=== PATIENT | male | born 1975 | race Asian ===

== ENCOUNTER 2019-07-23 18:04 | Emergency (ER) | payer OTHER ==
[~2019-07-23] VITALS: Ht 172.7 cm; Wt 89.8 kg
[2019-07-23 20:30] VITALS: BP 128/96
[2019-07-23] MEDS ORDERED: COLCHICINE 0.6 MG CAP PO ONE (21:00)
[2019-07-23] MEDS ORDERED: DexAMETHasone SOD PHOS 10MG/1ML VIAL INJ IM ONE (21:00)
[2019-07-23] MEDS ORDERED: HYDROcodone-ACET 10/325MG TAB PO ONE (21:00)
== END 2019-07-23 21:24 | disposition home or self-care (01) ==
LOC: ER 18:06
DX: M25.462 Effusion, left knee (principal)
CPT/HCPCS: 73560; 96372; 99283; J1100

== ENCOUNTER 2021-02-09 23:09 | Emergency (ER) | payer OTHER ==
[~2021-02-09] VITALS: Ht 177.8 cm; Wt 90.7 kg
[2021-02-09 23:09] VITALS: BP 98/68
[2021-02-10] MEDS ORDERED: methylPREDNISolone SOD SUCC 125 MG/2 ML VL IM ONE (02:15)
[2021-02-10] MEDS ORDERED: KETOROLAC TROMETH 60MG/2ML VIAL IM ONE (02:15)
== END 2021-02-10 03:16 | disposition home or self-care (01) ==
LOC: ER 23:09
DX: S83.8X1A Sprain of other specified parts of right knee, initial encounter (principal); X58.XXXA Exposure to other specified factors, initial encounter; Y93.89 Activity, other specified; Y92.89 Other specified places as the place of occurrence of the external cause; Y99.8 Other external cause status
CPT/HCPCS: 29505; 36415; 73562; 84550; 96372; 99284; J1885; J2930

== ENCOUNTER 2021-10-08 10:59 | Emergency (ER) | payer OTHER ==
[~2021-10-08] VITALS: Ht 177.8 cm; Wt 81.6 kg
[2021-10-08 12:35] VITALS: BP 102/66
[2021-10-08] MEDS ORDERED: methylPREDNISolone SOD SUCC 125 MG/2 ML VL IM ONE (13:30)
[2021-10-08] MEDS ORDERED: KETOROLAC TROMETH 60MG/2ML VIAL IM ONE (13:30)
[2021-10-08] MEDS ORDERED: IBUP800T27 PO (13:35)
[2021-10-08] MEDS ORDERED: PRED20TA2 PO (13:35)
== END 2021-10-08 13:53 | disposition home or self-care (01) ==
LOC: ER 10:59
DX: M10.9 Gout, unspecified (principal); Z79.899 Other long term (current) drug therapy
CPT/HCPCS: 36415; 84550; 96372; 99284; J1885; J2930

== ENCOUNTER 2024-11-11 20:55 | Emergency (ER) | payer OTHER ==
[~2024-11-11] VITALS: Ht 177.8 cm; Wt 93.7 kg
[~2024-11-11 20:55] MED LIST: IBUP-1456 PO; PRED20TA2 PO
[2024-11-11 23:50] VITALS: PULSE 68; RESP 16; TEMP 98.9; O2SAT 96
[2024-11-12 00:09] LABS: Basophils # (auto) 0.1 10 ^3/uL (0-0.2); Basophils % (auto) 0.5 % (0.0-2.0); Eosinophils # (auto) 0.2 10 ^3/uL (0-0.8); Eosinophils % (auto) 1.9 % (0.0-7.0); Hematocrit 45.6 % (41.0-53.0); Hemoglobin 15.9 g/dL (13.5-17.5); Lymphocytes # (auto) 1.5 10 ^3/uL (0.4-5.4); Lymphocytes % (auto) 13.9 % (10.0-50.0); Mean Corpuscular Hemoglobin 30.2 pg (28.0-32.0); Mean Corpuscular Hgb Conc. 34.9 g/dL (32.0-36.0); Mean Corpuscular Volume 86.3 fL (80.0-100.0); Monocytes # (auto) 1.1 10 ^3/uL (0-1.3); Monocytes % (auto) 10.2 % (0.0-12.0); Neutrophils # (auto) 7.8 10 ^3/uL (1.6-8.6); Neutrophils % (auto) 73.5 % (37.0-80.0); Platelet Count (auto) 169 10^3/uL (140-450); Red Blood Cells 5.28 10^6/uL (4.5-5.90); Red Cell Distribution Width 13.7 % (11.8-14.3); White Blood Cell 10.6 10^3/uL (4.4-10.8)
[2024-11-12] MEDS: HYDROmorphone HCL 2 MG/ML VL/or syr IM ONE (00:20)
[2024-11-12] MEDS: DexAMETHasone SOD PHOS 10MG/1ML VIAL INJ IM ONE (00:20)
[2024-11-12 00:50] VITALS: BP 139/76; PULSE 65; RESP 18
[2024-11-12] MEDS ORDERED: HYDR-4902 PO (01:06)
[2024-11-12] MEDS ORDERED: IBUP-1455 PO (01:06)
--- NOTE | 2024-11-12 01:06 | ED.PDOC ---
Musculoskeletal HPI Comments Patient is a Croatian speaking only 49-year-old male who arrives to the ED today with his friend for evaluation of right knee concerns. Friend states the patient has a history of gout and states that his right knee has been inflamed and gouty for the past two days, worsening today. Patient denies any fever nausea or vomiting. Vital signs were stable on arrival. Chief Complaint: Lower Extremity Time Seen by MD: 21:12 Primary Care Provider: Reviewed Notes: Nurses Notes Allergies: Coded Allergies: NO KNOWN ALLERGIES (Unverified , 07/23/19) Home Meds Active Scripts Prednisone (Prednisone) 20 Mg Tab, 20 MG PO BID for 5 Days, #10 MG 0 Refills Prov:VIJAY GARCIA 10/08/21 Ibuprofen (Ibuprofen) 800 Mg Tab, 1 TAB PO TID PRN, #30 TAB 0 Refills Prov:VIJAY GARCIA 10/08/21 Information Source: Patient, Friend Mode of Arrival: Ambulatory Location: Right Extremity Location: Knee Timing: Days Prehospital treatment: None Severity: Moderate Able to Move Extremity: Yes Bear Weight: Limited Pain: Moderate Hand Dominance: Right Mechanism: Spontaneous Circumstances: Spontaneous Onset of Symptoms: Spontaneous Symptoms: Swelling, Pain DVT Risk Factors: NONE Past Medical History PAST MEDICAL HISTORY: Gout Surgical History: Denies all surgeries Family History Family History: Unknown Social History Smoker: Non-Smoker Alcohol: Denies ETOH Use Drugs: Denies Drug Use Lives In: Home Constitutional: denies: chills, diaphoresis, fatigue, fever, malaise, sweats, weakness, others EENTM: denies: blurred vision, double vision, ear bleeding, ear discharge, ear drainage, ear pain, ear ringing, eye pain, eye redness, hearing loss, mouth pain, mouth swelling, nasal discharge, nose bleeding, nose congestion, nose pain, photophobia, tearing, throat pain, throat swelling, voice changes, others Respiratory: denies: cough, hemoptysis, orthopnea, SOB at rest, shortness of breath, SOB with excertion, stridor, wheezing, others Cardiovascular: denies: chest pain, dizzy spells, diaphoresis, Dyspnea on exertion, edema, irregular heart beat, left arm pain, lightheadedness, palpitations, PND, syncope, others Gastrointestinal: denies: abdomen distended, abdominal pain, blood streaked bowels, constipated, diarrhea, dysphagia, difficulty swallowing, hematemesis, melena, nausea, poor appetite, poor fluid intake, rectal bleeding, rectal pain, vomiting, others Genitourinary: denies: burning, dysuria, flank pain, frequency, hematuria, incontinence, penile discharge, penile sore, pain, testicle pain, testicle swelling, urgency, others Neurological: denies: dizziness, fainting, headache, left sided numbness, left sided weakness, numbness, paresthesia, pre-existing deficit, right sided numbn ess, right sided weakness, seizure, speech problems, tingling, tremors, weakness, others Musculoskeletal: reports: others (Right knee pain and swelling); denies: back pain, gout, joint pain, joint swelling, muscle pain, muscle stiffness, neck pain Integumetry: denies: bruises, change in color, change in hair/nails, dryness, laceration, lesions, lumps, rash, wounds, others Allergic/Immunocompromised: denies: Difficulty Healing, Frequent Infections, Hives, Itching, others Hematologic/Lymphatic: denies: anemia, blood clots, easy bleeding, easy bruising, swollen glands, others Endocrine: denies: excessive hunger, excessive sweating, excessive thirst, excessive urination, flushing, intolerance to cold, intolerance to heat, unexplained weight gain, unexplained weight loss, others Psychiatric: denies: anxiety, bipolar disorder, depression, hopeless, panic disorder, schizophrenia, sleepless, suicidal, others Physical Exam General Appearance: Moderate Distress (Due to right knee pain concerns.), Normal HEENT: Normal ENT Inspection, Pharynx Normal, TMs Normal Neck: Full Range of Motion, Non-Tender, Normal, Normal Inspection Respiratory: Chest Non-Tender, Lungs Clear, No Accessory Muscle Use, No Respiratory Distress, Normal Breath Sounds Cardiovascular: No Edema, No JVD, No Murmur, No Gallop, Normal Peripheral Pulses, Regular Rate/Rhythm Breast Exam: Deferred Gastrointestinal: No Organomegaly, Non Tender, No Pulsatile Mass, Normal Bowel Sounds, Soft Genitalia: Deferred Pelvic: Deferred Rectal: Deferred Extremities: Other (Right knee reveals some moderate edema without erythema noted. I am not sure this patient is having a gout flare. Knee looks to be more effusive than gout like. Significant reduced range of motion. Distal neurovascularly intact.) Neurologic: Alert, No Motor Deficits, Normal Affect, Normal Mood, No Sensory Deficits Cerebellar Function: Normal Reflexes: Normal Skin: Dry, Normal Color, Warm Lymphatic: No Adenopathy Was a procedure done? Was a procedure done?: No Differential Diagnosis EXT Differential Diagnosis: Other (Gout, knee effusion) X-Ray, Labs, Meds, VS Vital Signs Date Time Temp Pulse Resp B/P (MAP) Pulse Ox O2 Delivery O2 Flow Rate FiO2 11/12/24 00:20 68 16 141/78 11/11/24 23:50 68 16 96 Room Air* 0 21 11/11/24 23:50 98.9 68 16 141/78 (99) 98 98.9 11/11/24 23:00 99.7 92 13 120/80 (93) 96 99.7 Lab Test 11/11/24 23:59 Range/Units White Blood Count 10.6 4.4-10.8 10^3/uL Red Blood Count 5.28 4.5-5.90 10^6/uL Hemoglobin 15.9 13.5-17.5 g/dL Hematocrit 45.6 41.0-53.0 % Mean Corpuscular Volume 86.3 80.0-100.0 fL Mean Corpuscular Hemoglobin 30.2 28.0-32.0 pg Mean Corpuscular Hemoglobin Concent 34.9 32.0-36.0 g/dL Red Cell Distribution Width 13.7 11.8-14.3 % Platelet Count 169 140-450 10^3/uL Mean Platelet Volume 7.4 6.9-10.8 fL Neutrophils (%) (Auto) 73.5 37.0-80.0 % Lymphocytes (%) (Auto) 13.9 10.0-50.0 % Monocytes (%) (Auto) 10.2 0.0-12.0 % Eosinophils (%) (Auto) 1.9 0.0-7.0 % Basophils (%) (Auto) 0.5 0.0-2.0 % Neutrophils # (Auto) 7.8 1.6-8.6 10 ^3/uL Lymphocytes # (Auto) 1.5 0.4-5.4 10 ^3/uL Monocytes # (Auto) 1.1 0-1.3 10 ^3/uL Eosinophils # (Auto) 0.2 0-0.8 10 ^3/uL Basophils # (Auto) 0.1 0-0.2 10 ^3/uL Nucleated Red Blood Cells 0.0 % Uric Acid 5.3 3.7-9.2 mg/dL B-Type Natriuretic Peptide 22.53 0-100 pg/mL Current Medications Medications (Trade) Dose Ordered Sig/Ian Route Start Time Stop Time Status Last Admin Hydromorphone HCl (Dilaudid Injection) 0.5 mg ONCE ONCE IM 11/12/24 00:00 11/12/24 00:01 DC 11/12/24 00:20 Dexamethasone Sodium Phosphate (Decadron Injection) 10 mg ONCE ONCE IM 11/12/24 00:00 11/12/24 00:01 DC 11/12/24 00:20 X-Ray, Labs, Meds, VS Comment All studies performed in the ED today were evaluated by me personally. Laboratories and uric acid results were unremarkable for any definitive gout. I believe the patient is suffering from some knee effusion. Advised patient follow up with his primary care provider for continued evaluation and management as needed. Pain medication and ice therapy as needed. Time of 1ST Reevaluation: 01:04 Reevaluation 1ST: Improved Consultation: PCP Patient Education/Counseling: Diagnosis, Treatment Family Education/Counseling: Diagnosis, Treatment Departure 1 Departure Time of Disposition: 01:04 Impression: Primary Impression: Knee pain Additional Impression: Knee joint effusion Disposition: HOME / SELF CARE / HOMELESS Condition: Stable Additional Instructions: Advised patient utilize pain medication as needed as well as ice therapy. Patient should follow up with primary care provider for discussions related to today's visit. e-Prescriptions Hydrocodone-Acetaminophen (Hydrocodone Bitartrate/AC 5-325 mg) 1 Tab Tab 1 TAB PO Q6HP PRN, #15 TAB Prov: MAGDALENA SANCHEZ PAC 11/12/24 Ibuprofen Micronized (Ibuprofen) 800 Mg Tab 800 MG PO Q8HP PRN, #20 TAB Prov: MAGDALENA SANCHEZ PAC 11/12/24 Discharged With: Self, Friend Critical Care Note Critical Care Time?: No Stability Stability form required: No Heart Score Heart Score: Heart Score Response (Comments) Value History N/A 0 EKG N/A 0 Age N/A 0 Risk Factors N/A 0 Troponin N/A 0 Total 0 MAGDALENA SANCHEZ PAC November 12, 2024 01:06
== END 2024-11-12 01:27 | disposition home or self-care (01) ==
LOC: ER 20:55
DX: M25.461 Effusion, right knee (principal); M10.9 Gout, unspecified; R06.02 Shortness of breath
CPT/HCPCS: 36415; 83880; 84550; 85025; 96372; 99284; J1100; J1171